=== PATIENT | female | born 1975 | race Caucasian/White ===

== ENCOUNTER 2016-10-27 18:36 | Emergency (ER) | payer MEDICAID, OTHER ==
[~2016-10-27] VITALS: Ht 167.6 cm; Wt 83.5 kg
[2016-10-27] MEDS ORDERED: FERR325T (18:59)
[2016-10-27] MEDS ORDERED: BUPR150T5 (18:59)
[2016-10-27] MEDS ORDERED: ESCI20TA (18:59)
[2016-10-28] MEDS ORDERED: NORCO, ANEXSIA 5/325MG TABLET (HYDROcodone/ACETAMINOPHEN) PO ONE (02:45)
--- NOTE | 2016-10-28 03:30 | REPUSA ---
HISTORY: Trauma. COMPARISON: Not provided. TECHNIQUE: Multiple thin section helically-acquired axially-displayed and helically acquired coronall y displayed computed tomographic images of the face are obtained from the mandible through the fronta l sinuses, with images obtained at soft tissue and bone window. 2D reformatted images were performed. FINDINGS: Right facial soft tissue edema. Normal bony mineralization. No fractures. Normal orbits. Chronic mucosal inflammatory changes of the left maxillary sinus. Normal, remaining clear paranasal sinuses. Normal oral and nasal cavities. Normal infratemporal fossa and deep parapharyngeal spaces with normal muscles of mastication. Normal parotid and submandibular glands. IMPRESSION: Right facial soft tissue contusion. No fracture. Thank you for your kind referral of this patient
[2016-10-28 03:40] VITALS: BP 124/72
== END 2016-10-28 03:48 | disposition home or self-care (01) ==
LOC: M ED 19:55
DX: S00.83XA Contusion of other part of head, initial encounter (principal); W50.0XXA Accidental hit or strike by another person, initial encounter; Y92.099 Unspecified place in other non-institutional residence as the place of occurrence of the external cause; Y93.9 Activity, unspecified; Y99.9 Unspecified external cause status; G89.29 Other chronic pain; M54.9 Dorsalgia, unspecified; D50.9 Iron deficiency anemia, unspecified; F17.200 Nicotine dependence, unspecified, uncomplicated; Z79.899 Other long term (current) drug therapy

== ENCOUNTER 2019-02-07 12:00 | Emergency (ER) | payer OTHER, SELFPAY ==
[~2019-02-07] VITALS: Ht 165.1 cm; Wt 79.6 kg
[~2019-02-07 12:00] MED LIST: BUPR150T5; ESCI20TA; FERR1TAB8; IBUP-1114 PO; NAPR-837 PO; VALI5TAB PO
[2019-02-07] MEDS ORDERED: KETOROLAC 60 MG/2 ML VIAL (J1885) IM ONE (14:30)
--- NOTE | 2019-02-07 15:48 | REP ---
LUMBOSACRAL SPINE: Five views of the lumbosacral spine are performed. No compression fracture is seen. There is normal lumbar lordosis with no spondylolysis or spondylolisthesis. Tiny spurs are seen of L3 and L4. There is minimal disc space narrowing at L4-L5 and L5-S1 with sclerosis of the posterior facet joints at those levels. The posterior elements are intact. IMPRESSION: Mild degenerative changes without fracture or dislocation. Electronically Signed by Brendan Valenzuela MD 02/07/2019 05:47 P
[2019-02-07] MEDS ORDERED: PRED20TA PO (16:00)
[2019-02-07 16:09] VITALS: BP 145/84
== END 2019-02-07 16:10 | disposition home or self-care (01) ==
LOC: M ED 12:00
DX: S39.012A Strain of muscle, fascia and tendon of lower back, initial encounter (principal); M54.42 Lumbago with sciatica, left side; M51.37 Other intervertebral disc degeneration, lumbosacral region; X50.1XXA Overexertion from prolonged static or awkward postures, initial encounter; Y92.098 Other place in other non-institutional residence as the place of occurrence of the external cause; M47.816 Spondylosis without myelopathy or radiculopathy, lumbar region; D50.9 Iron deficiency anemia, unspecified; Z87.442 Personal history of urinary calculi; Z98.84 Bariatric surgery status; F17.200 Nicotine dependence, unspecified, uncomplicated
CPT/HCPCS: 72110; 96372; 99283; J1885

== ENCOUNTER → 2019-03-15 | Outpatient (REF) | payer OTHER ==
[~2019-03-15] MED LIST changes: +GABA-845 PO; +PRED20TA PO
[2019-03-15 11:27] LABS: HEMOGLOBIN 8.6 g/dl (12.0-15.5); MEAN CORPUSCULAR HEMOGLOBIN 19.5 pg (27.0-33.0); MEAN CORPUSCULAR HGB CONC 27.7 g/dl (32.0-36.5); MEAN CORPUSCULAR VOLUME 70.5 fl (80.0-96.0); PLATELET COUNT, AUTOMATED 308 10^3/uL (150-450); WHITE BLOOD COUNT 9.4 10^3/uL (4.0-10.0)
[2019-03-15 11:35] LABS: ALBUMIN 3.4 GM/DL (3.2-5.2); ALT/SGPT 16 U/L (12-78); BILIRUBIN,TOTAL 0.3 MG/DL (0.2-1.0); BLOOD UREA NITROGEN 13 MG/DL (7-18); CALCIUM LEVEL 8.6 MG/DL (8.5-10.1); CARBON DIOXIDE LEVEL 29 MEQ/L (21-32); CHLORIDE LEVEL 109 MEQ/L (98-107); CHOLESTEROL LEVEL 157 MG/DL (<200); CHOLESTEROL RISK RATIO 3.204 (<5); CREATININE FOR GFR 0.69 MG/DL (0.55-1.30); FERRITIN 3 NG/ML (8-252); GLOMERULAR FILTRATION RATE > 60.0 (>58); GLUCOSE, FASTING 87 MG/DL (70-100); HDL CHOLESTEROL 49 MG/DL (>40); LDL CHOLESTEROL 91 MG/DL (<100); NON-HDL-C 108 MG/DL; POTASSIUM SERUM 4.5 MEQ/L (3.5-5.1); SODIUM LEVEL 144 MEQ/L (136-145); TOTAL PROTEIN 6.4 GM/DL (6.4-8.2); TRIGLYCERIDES LEVEL 85 MG/DL (<150)
[2019-03-15 11:39] LABS: TOTAL 25(OH) VITAMIN D 19.2 NG/ML (30.0-100.0); VITAMIN B12 LEVEL 222 PG/ML
[2019-03-15 11:41] LABS: FOLATE 8.6 NG/ML
== END ==
LOC: M SFHCPLAZ 08:54
PROVIDERS: ATTEND Nurse Practitioner Family
DX: Z98.84 Bariatric surgery status (principal); M51.36 Other intervertebral disc degeneration, lumbar region; Z13.220 Encounter for screening for lipoid disorders; E55.9 Vitamin D deficiency, unspecified

== ENCOUNTER → 2019-03-22 | Outpatient (REF) | payer OTHER | LOC: M SFHCPLAZ 16:18 | PROVIDERS: ATTEND Nurse Practitioner Family | DX: Z12.4 Encounter for screening for malignant neoplasm of cervix (principal) ==

== ENCOUNTER 2019-03-28 06:58 | Outpatient (CLI) | payer OTHER ==
[2019-03-28] VITALS (7 sets, daily range): BP systolic 109–137; BP diastolic 58–74
[~2019-03-28] VITALS: Ht 165.1 cm; Wt 79.6 kg
[~2019-03-28 06:58] MED LIST changes: -GABA-845 PO
[2019-03-28] MEDS ORDERED: GABA-845 PO (07:08)
[2019-03-28] MEDS ORDERED: IRON SUCROSE 25 MG in NS 50 ML IV ONE (08:00)
[2019-03-28] MEDS ORDERED: IRON SUCROSE 475 MG in NS 250 ML IV ONE (09:00)
== END 2019-03-28 12:45 | disposition home or self-care (01) ==
LOC: M INFU 06:58
PROVIDERS: ATTEND Nurse Practitioner Family
DX: D50.9 Iron deficiency anemia, unspecified (principal); Z98.84 Bariatric surgery status
CPT/HCPCS: 96365; 96366; J1756

== ENCOUNTER → 2019-04-19 | Outpatient (CLI) | payer OTHER ==
[~2019-04-19] MED LIST changes: +GABA-845 PO
--- NOTE | 2019-04-19 11:02 | REP ---
BILATERAL MAMMOGRAM WITH 3D TOMOSYNTHESIS: No family history of breast cancer. [facility] lifetime risk of breast cancer 8.8%. Comparison 06/16/2016 as well as other prior exams. Breast parenchyma is heterogeneously dense limiting the sensitivity of the mammogram. Possible oval partially well circumscribed nodule is seen medially in the left breast on the CC view approximately 1.3 cm in diameter. This questionably seen just above the level of the nipple on the MLO view. No other definite mass is seen bilaterally. No architectural distortion is seen. No clustered microcalcifications are seen. IMPRESSION: BIRADS 0: BI-RADS/ACR category 0 mammogram, Incomplete: Need additional imaging evaluation and/or prior mammograms for comparison. Possible oval nodule, partially well circumscribed, in the medial left breast, best seen on the CC view. Recommend spot compression views and ultrasound to further evaluate. ACR 0 incomplete. This mammogram was interpreted with the aid of an FDA-approved computer-aided detection system. The patient states he/she had a clinical breast exam in 03/2019. The patient letter being requested is M0.
== END ==
LOC: M WHC 07:54
PROVIDERS: ATTEND Nurse Practitioner Family
DX: Z12.31 Encounter for screening mammogram for malignant neoplasm of breast (principal); R92.8 Other abnormal and inconclusive findings on diagnostic imaging of breast

== ENCOUNTER → 2019-04-29 | Outpatient (CLI) | payer OTHER ==
[2019-04-29 13:08] LABS: FOLATE 19.1 NG/ML
[2019-04-29 13:30] LABS: HEMATOCRIT 41.8 % (36.0-47.0); HEMOGLOBIN 12.3 g/dl (12.0-15.5); MEAN CORPUSCULAR HEMOGLOBIN 23.7 pg (27.0-33.0); MEAN CORPUSCULAR HGB CONC 29.4 g/dl (32.0-36.5); MEAN CORPUSCULAR VOLUME 80.5 fl (80.0-96.0); PLATELET COUNT, AUTOMATED 226 10^3/uL (150-450); RED BLOOD COUNT 5.19 10^6/uL (4.00-5.40); WHITE BLOOD COUNT 9.5 10^3/uL (4.0-10.0)
== END ==
LOC: M WUC 09:50
PROVIDERS: ATTEND Nurse Practitioner Family
DX: D50.8 Other iron deficiency anemias (principal); E53.8 Deficiency of other specified B group vitamins

== ENCOUNTER → 2019-05-06 | Outpatient (CLI) | payer OTHER ==
--- NOTE | 2019-05-06 14:58 | REP ---
DIAGNOSTIC MAMMOGRAM, LEFT BREAST, WITH LEFT BREAST ULTRASOUND: Multiple spot compression views, left breast performed and correlated with recent mammogram of 04/19/2019, as well as other prior exams. The oval, partially well-circumscribed nodular opacity medially on the recent left CC view, appears to compress out to background parenchymal density on today's spot compression views. There is no definite persistent nodule mammographically. Real-time sonographic evaluation of medial aspect left breast performed. Multiple cysts are seen. 6 mm cyst is seen at the 6-o'clock position. At 7-o'clock position, there is a cyst measuring 9 x 8 x 4 mm. At 12-o'clock position, there is a cyst measuring 7 x 4 x 6 mm. No solid nodules are seen. IMPRESSION: BIRADS 2: BI-RADS/ACR category 2 mammogram. Benign Findings. ACR 2 benign. Oval, partially well-circumscribed nodule inferomedial left breast is not well seen on today's spot compression views. By ultrasound, there is an oval cyst at the 7-o'clock position of the left breast corresponding to the mammographic abnormality on the study of 04/19/2019. Multiple other cysts are seen, as discussed above. No solid nodule is seen. The findings are ACR 2 benign. Recommend followup mammogram in 1 year. The patient letter being requested is M1. Electronically Signed by Brendan Valenzuela MD 05/08/2019 09:27 A
== END ==
LOC: M RAD 11:54
PROVIDERS: ATTEND Nurse Practitioner Family
DX: R92.8 Other abnormal and inconclusive findings on diagnostic imaging of breast (principal); N60.12 Diffuse cystic mastopathy of left breast

== ENCOUNTER → 2019-07-29 | Outpatient (CLI) | payer OTHER ==
[~2019-07-29] MED LIST changes: +CONRAY-43 43% 50ML VIAL (Q9960) As Ordered ONE; +LIDOCAINE 1% MDV 20ML VIAL As Ordered ONE; +TRIAMCINOLONE ACETONIDE SUSP 40 MG/ML VIAL (J3301) As Ordered ONE
--- NOTE | 2019-07-29 19:04 | REP ---
LEFT HIP INJECTION The procedure was performed under the direct supervision of Dr. Weiner. The benefits and risks including but not limited to pain infection bleeding and anaphylaxis were explained to the patient and informed consent was obtained. The left femoral neck was localized using fluoroscopic guidance. The skin was prepped and draped in a sterile fashion. 1% lidocaine was used as a local anesthetic. Using fluoroscopic guidance a 22-gauge spinal needle was inserted and advanced to the femoral neck. 0.5 ml of Conray 43 was injected to verify placement. 6 ml of a solution containing 5 ml of 1% lidocaine and 1 ml of Kenalog 40 mg injected. The needle was then removed. The patient tolerated the procedure well and there were no immediate complications. Less than 6 seconds of fluoroscopy time was utilized for this procedure. Electronically Signed by ARSALAN Floyd 07/29/2019 04:01 P Electronically Signed by Servando Weiner MD 07/29/2019 06:55 P
== END ==
LOC: M RADPRO 10:01
PROVIDERS: ATTEND Physician Assistant
DX: M24.152 Other articular cartilage disorders, left hip (principal)
CPT/HCPCS: 20610; 77002; J3301; Q9960

== ENCOUNTER → 2019-08-09 | Outpatient (REF) | payer OTHER ==
[~2019-08-09] MED LIST changes: -CONRAY-43 43% 50ML VIAL (Q9960) As Ordered ONE; -LIDOCAINE 1% MDV 20ML VIAL As Ordered ONE; -TRIAMCINOLONE ACETONIDE SUSP 40 MG/ML VIAL (J3301) As Ordered ONE
[2019-08-09 11:37] LABS: PLATELET COUNT, AUTOMATED 232 10^3/uL (150-450)
[2019-08-09 11:49] LABS: INR 0.96; PROTHROMBIN TIME 12.5 SECONDS (11.8-14.0)
[2019-08-09 11:50] LABS: PARTIAL THROMBOPLASTIN TIME 29.6 SECONDS (25.0-38.4)
== END ==
LOC: M LABDRAW1 09:46
PROVIDERS: ATTEND Physician Assistant
DX: Z01.812 Encounter for preprocedural laboratory examination (principal); M47.27 Other spondylosis with radiculopathy, lumbosacral region

== ENCOUNTER → 2019-08-16 | Outpatient (CLI) | payer OTHER ==
[2019-08-16 12:43] LABS: HEMATOCRIT 43.2 % (36.0-47.0); HEMOGLOBIN 13.8 g/dl (12.0-15.5); MEAN CORPUSCULAR HGB CONC 31.9 g/dl (32.0-36.5); MEAN CORPUSCULAR VOLUME 93.9 fl (80.0-96.0); PLATELET COUNT, AUTOMATED 218 10^3/uL (150-450); WHITE BLOOD COUNT 10.5 10^3/uL (4.0-10.0)
[2019-08-16 12:53] LABS: BLOOD UREA NITROGEN 11 MG/DL (7-18); CALCIUM LEVEL 9.2 MG/DL (8.5-10.1); CARBON DIOXIDE LEVEL 30 MEQ/L (21-32); CHLORIDE LEVEL 106 MEQ/L (98-107); CREATININE FOR GFR 0.69 MG/DL (0.55-1.30); FERRITIN 11 NG/ML (8-252); GLOMERULAR FILTRATION RATE > 60.0 (>58); GLUCOSE, FASTING 91 MG/DL (70-100); POTASSIUM SERUM 4.5 MEQ/L (3.5-5.1); SODIUM LEVEL 140 MEQ/L (136-145)
[2019-08-16 14:05] LABS: TOTAL 25(OH) VITAMIN D 49.2 NG/ML (30.0-100.0); VITAMIN B12 LEVEL 386 PG/ML
[2019-08-16 14:06] LABS: FOLATE 20.1 NG/ML
== END ==
LOC: M WUC 09:56
PROVIDERS: ATTEND Nurse Practitioner Family
DX: D50.8 Other iron deficiency anemias (principal); E53.8 Deficiency of other specified B group vitamins; E55.9 Vitamin D deficiency, unspecified

== ENCOUNTER 2019-09-20 21:43 | Emergency (ER) | payer OTHER ==
[~2019-09-20] VITALS: Ht 162.6 cm; Wt 80.5 kg
[2019-09-20] MEDS ORDERED: CELE1CAP4 PO (21:52)
[2019-09-20] MEDS ORDERED: MULTTAB4 PO (21:52)
[2019-09-20] MEDS ORDERED: CYMB1CAP5 PO (21:52)
[2019-09-20] MEDS ORDERED: IRON65TA2 PO (21:52)
[2019-09-20] MEDS ORDERED: PERCOCET 5MG/325MG TAB PO ONE (23:30)
[2019-09-20] MEDS ORDERED: ONDANSETRON 4 MG ORAL DISINTEGRATING TAB (Q0162 PER 1MG) PO ONE (23:30)
[2019-09-21] MEDS ORDERED: ONDA4TAB6 PO (00:11)
[2019-09-21 00:17] VITALS: BP 131/85
== END 2019-09-21 00:22 | disposition home or self-care (01) ==
LOC: M ED 21:43
DX: M25.552 Pain in left hip (principal); R11.2 Nausea with vomiting, unspecified; R42 Dizziness and giddiness; D50.9 Iron deficiency anemia, unspecified; D33.9 Benign neoplasm of central nervous system, unspecified; Z87.442 Personal history of urinary calculi; Z79.899 Other long term (current) drug therapy
CPT/HCPCS: 81001; 87086; 99283; Q0162

== ENCOUNTER → 2024-08-08 | Outpatient (REF) | payer OTHER ==
[~2024-08-08] MED LIST changes: +BUPR-71; -BUPR150T5; +CELE1CAP4 PO; +CYMB1CAP5 PO; -ESCI20TA; +ESCI20TA16; +GABA-284 PO; -GABA-845 PO; +IRON65TA2 PO; +MULT1TAB74 PO; +ONDA-282 PO
== END ==
LOC: M LAB 10:32 → EDSTATUS 08-09 12:46
PROVIDERS: ATTEND Nurse Practitioner Adult Health
DX: Z00.00 Encounter for general adult medical examination without abnormal findings (principal)

== ENCOUNTER → 2025-04-24 | Outpatient (REF) | payer OTHER ==
[2025-04-24 15:36] LABS: APPEARANCE, URINE CLEAR (CLEAR); BACTERIA, URINE AUTO NEGATIVE (NEGATIVE); BILIRUBIN, URINE AUTO NEGATIVE (NEGATIVE); BLOOD, URINE BLOOD NEGATIVE (NEGATIVE); GLUCOSE, URINE (UA) AUTO NEGATIVE (NEGATIVE); KETONE, URINE AUTO NEGATIVE (NEGATIVE); LEUKOCYTE ESTERASE, URINE AUTO NEGATIVE (NEGATIVE); NITRITE, URINE AUTO NEGATIVE (NEGATIVE); PROTEIN, URINE AUTO NEGATIVE (NEGATIVE); RBC, URINE AUTO 0 /HPF (0-3); SPECIFIC GRAVITY URINE AUTO 1.005 (1.002-1.035); SQUAMOUS EPITHELIAL CELL UR AU 1 /HPF (0-6); UROBILINOGEN, URINE AUTO 0.2 mg/dL (0.0-2.0); WBC, URINE AUTO 1 /HPF (0-3)
[2025-04-24 16:14] LABS: CREATININE, URINE 23.9 MG/DL; MALB URINE SIEMENS < 3.0 MG/L
[2025-04-24 17:13] LABS: PLATELET COUNT, AUTOMATED 350 10^3/uL (150-450)
[2025-04-24 17:48] LABS: VITAMIN B12 LEVEL 555.0 PG/ML (211-911)
== END ==
LOC: M LAB REF 14:46
PROVIDERS: ATTEND Family Medicine Addiction Medicine
DX: R35.0 Frequency of micturition (principal); Z86.2 Personal history of diseases of the blood and blood-forming organs and certain disorders involving the immune mechanism; Z98.84 Bariatric surgery status

== ENCOUNTER → 2025-06-05 | Outpatient (CLI) | payer OTHER ==
[2025-06-05 13:02] LABS: ALT/SGPT 21 U/L (7.0-40); AST/SGOT 21 U/L (<34); CALCIUM LEVEL 9.1 MG/DL (8.5-10.1); CARBON DIOXIDE LEVEL 28 MMOL/L (20-31); CHLORIDE LEVEL 105 MMOL/L (98-107); CHOLESTEROL LEVEL 200 MG/DL (<200); CHOLESTEROL RISK RATIO 3.17 (<5); CREATININE FOR GFR 0.63 MG/DL (0.55-1.30); GLOMERULAR FILTRATION RATE > 90.0 (>58); IRON (FE) 13 UG/DL (50-170); LDL CHOLESTEROL 116.9 MG/DL (<100); NON-HDL-C 137.1 MG/DL; PERCENT SATURATION 3.0 % (13.2-45.0); POTASSIUM SERUM 4.5 MMOL/L (3.5-5.1); SODIUM LEVEL 140 MMOL/L (136-145); TRIGLYCERIDES LEVEL 101 MG/DL (<150)
== END ==
LOC: M WUC 09:58
PROVIDERS: ATTEND Student in an Organized Health Care Education/Training Program
DX: M25.511 Pain in right shoulder (principal); G89.29 Other chronic pain; M25.512 Pain in left shoulder; I10 Essential (primary) hypertension; D50.9 Iron deficiency anemia, unspecified

== ENCOUNTER → 2025-07-07 | Outpatient (REF) | payer OTHER | LOC: M LAB REF 14:08 | PROVIDERS: ATTEND Student in an Organized Health Care Education/Training Program | DX: R53.82 Chronic fatigue, unspecified (principal) ==